=== PATIENT | male | born 1985 | race Caucasian/White ===

== ENCOUNTER 2016-05-16 23:30 | Emergency (ER) | payer SELFPAY ==
[~2016-05-16] VITALS: Ht 182.9 cm; Wt 110.0 kg
[2016-05-16 23:37] VITALS: BP 162/110; PULSE 86; RESP 14; TEMP 98.1; O2SAT 96
[2016-05-17] MEDS ORDERED: AMOXICILLIN/CLAVULANATE K 875 MG TAB PO ONE
[2016-05-17] MEDS ORDERED: KETOROLAC TROMETHAMINE 60 MG/2 ML (IM) VIAL IM ONE
--- NOTE | 2016-05-17 | PD ---
HPI Chief Complaint: ENT Complaint Time Seen by Provider: 00:00 Travel History International Travel<30 days: No Contact w/Intl Traveler<30days: No Traveled to known affect area: No History of Present Illness HPI 30-year-old male presents to the emergency department for evaluation left ear pain, severe, sharp, stabbing. Patient dates that it is radiating to his head. Denies any trauma. No drainage from the ear. No definite fever or chills. No nausea, vomiting, diarrhea. No other symptoms to report at this time. PFSH Past Medical History Depression: Yes Diminished Hearing: No Seizures: Yes (STS A CHILD. NO MORE SINCE age 8 per patient.) Social History Alcohol Use: Yes (occ) Tobacco Use: Yes (1ppd ) Substance Use: Yes Allergies-Medications (Allergen,Severity, Reaction): Coded Allergies: No Known Allergies (Verified , 05/16/16) Reported Meds & Prescriptions Reported Meds & Active Scripts Active Ibuprofen 800 Mg Tab 800 Mg PO Q8H PRN Augmentin (Amoxicillin-Clavulanate) 875-125 mg Tab 875 Mg PO BID 10 Days not for use in CrCl <30 ml/min. Review of Systems Except as stated in HPI: all other systems reviewed are Neg Physical Exam Narrative GENERAL: Well-nourished, well-developed male patient in no acute distress SKIN: Warm and dry. HEAD: Normocephalic. Atraumatic. No mastoid tenderness. EARS: Bilateral pinnae and external canals appear within normal limits. Right tympanic membranes without erythema, dullness or perforation. The left tympanic membrane is reddened, bulging, with a large purulent effusion. EYES: No scleral icterus. No injection or drainage. ENT: Mucosa pink and moist. No erythema or exudates. No uvular edema. No uvular , palatal, or tonsillar deviation. Airway patent. Nasal turbinates appear normal without nasal blood, purulent drainage or septal hematoma. NECK: Supple, trachea midline. No JVD or lymphadenopathy. CARDIOVASCULAR: Regular rate and rhythm without murmurs, gallops, or rubs. RESPIRATORY: Breath sounds equal bilaterally. No accessory muscle use. Data Data Last Documented VS Vital Signs Date Time Temp Pulse Resp B/P Pulse Ox O2 Delivery O2 Flow Rate FiO2 05/17/16 00:00 18 05/16/16 23:37 98.1 86 162/110 96 Room Air Orders Ketorolac Inj (Toradol Inj) (05/17/16 00:00) Amoxicil-Clavulanate (Augmentin) (05/17/16 00:00) MDM Medical Decision Making Medical Screen Exam Complete: Yes Emergency Medical Condition: Yes Medical Record Reviewed: Yes Differential Diagnosis Otitis media versus externa versus tympanic membrane rupture versus perforation Narrative Course 30-year-old male presents to emergency department for evaluation of left ear pain. Physical exam is consistent with an otitis media. Patient is treated for pain here. He'll be started on oral antibiotics.. He is encouraged to follow-up with primary care provider and return immediately if any acute worsening symptoms. Diagnosis Primary Impression: Otitis media Qualified Code: H65.02 - Acute serous otitis media of left ear, recurrence not specified Referrals: Primary Care Physician Patient Instructions: General Instructions, Otitis Media (ED) Additional Instructions: Avoid water submersion Do not anything into your ears Follow-up to primary care provider Return immediately to the emergency department with acute worsening of symptoms Med/Other Pt SpecificInfo: Prescription(s) given Scripts Ibuprofen 800 Mg [id number] Mg PO Q8H PRN (Pain/Inflammation) #30 TAB Ref 0 Prov:Rosalinda Cantor 05/17/16 Amoxicillin-Clavulanate (Augmentin)875-125 mg [id number] Mg PO BID 10 Days Ref 0 not for use in CrCl <30 ml/min. Prov:Rosalinda Cantor 05/17/16 Disposition: 01 DISCHARGE HOME Condition: Stable Rosalinda Cantor May 17, 2016 00:00
[2016-05-17] MEDS ORDERED: IBUP800T23 PO (00:32)
[2016-05-17] MEDS ORDERED: AUGM875T PO (00:32)
== END 2016-05-17 00:36 | disposition home or self-care (01) ==
LOC: NEPB 23:30
DX: H66.92 Otitis media, unspecified, left ear (principal); F17.210 Nicotine dependence, cigarettes, uncomplicated
CPT/HCPCS: 96372; 99283; J1885

== ENCOUNTER 2016-05-27 17:31 | Emergency (ER) | payer SELFPAY ==
[~2016-05-27] VITALS: Ht 180.3 cm; Wt 90.0 kg
[~2016-05-27 17:31] MED LIST: AUGM875T PO; IBUP800T23 PO
[2016-05-27 17:36] VITALS: BP 177/110; PULSE 81; RESP 19; TEMP 97.6; O2SAT 98
--- NOTE | 2016-05-27 18:02 | PD ---
HPI Chief Complaint: ENT Complaint Time Seen by Provider: 18:02 Travel History International Travel<30 days: No Contact w/Intl Traveler<30days: No Traveled to known affect area: No History of Present Illness HPI 30-year-old male presents to the emergency Department with complaint of left ear pain for almost 2 weeks. He was seen here 2 weeks ago and treated for a left ear infection and was given antibiotics. He says the pain has never subsided. It is worse when wind blows in his ears. Denies fever, chills, nausea, vomiting. He has taken ibuprofen with some relief of pain. Denies drainage from the ear. Denies decrease in hearing. No known allergies. No establish primary care provider. No other modifying factors or associated signs and symptoms. History Social History Alcohol Use: Yes (occ) Tobacco Use: Yes (1ppd ) Allergies-Medications (Allergen,Severity, Reaction): Coded Allergies: No Known Allergies (Verified , 05/27/16) Reported Meds & Prescriptions Reported Meds & Active Scripts Active Ibuprofen 800 Mg Tab 800 Mg PO Q8H PRN Augmentin (Amoxicillin-Clavulanate) 875-125 mg Tab 875 Mg PO BID 10 Days not for use in CrCl <30 ml/min. Review of Systems Except as stated in HPI: all other systems reviewed are Neg Physical Exam Narrative GENERAL: Well-nourished, well-developed male patient, in no acute distress; afebrile, nontoxic-appearing SKIN: Warm and dry. No rash. HEAD: Atraumatic. Normocephalic. EYES: Pupils equal and round at 3 mm with brisk reaction. No scleral icterus. No injection or drainage. PERRLA. ENT: Mucosa pink and moist. No erythema or exudates. No uvular edema. No uvular , palatal, or tonsillar deviation. Airway patent. EARS: Bilateral pinnae and external canals appear within normal limits. Bilateral tympanic membranes without erythema, dullness or perforation. Left tympanic membrane with bulging: Left ear without cerumen impaction, foreign body , signs of otitis media or otitis externa. No lymphadenopathy, erythema, edema around the ear. NECK: Trachea midline. No lymphadenopathy. CARDIOVASCULAR: Regular rate and rhythm. No murmur appreciated. RESPIRATORY: No accessory muscle use. Clear to auscultation. Breath sounds equal bilaterally. GASTROINTESTINAL: Abdomen soft, non-tender, nondistended. Hepatic and splenic margins not palpable. Bowel sounds are active 4 quadrants. MUSCULOSKELETAL: No obvious deformities. No clubbing. No cyanosis. No edema. NEUROLOGICAL: Awake and alert. Oriented 3. No obvious cranial nerve deficits. Motor grossly within normal limits. Normal speech. Moves all extremities. 5/5 strength to all extremities. PSYCHIATRIC: Appropriate mood and affect; insight and judgment normal. Data Data Last Documented VS Vital Signs Date Time Temp Pulse Resp B/P Pulse Ox O2 Delivery O2 Flow Rate FiO2 05/27/16 17:36 97.6 81 19 177/110 98 MDM Medical Screen Exam Complete: Yes Emergency Medical Condition: No Differential Diagnosis Otitis externa, otitis media, nonspecific left ear pain Narrative Course 30-year-old male with continued left ear pain after being treated for otitis media on May 16 with Augmentin. Apparently the ear pain never subsided. The left ear is without signs of otitis media, otitis externa. The patient is afebrile and nontoxic-appearing. No signs of mastoiditis: No tenderness on palpation, no erythema, no outer ear edema. Blood pressure recheck prior to discharge 142/90. Vital signs are stable and the patient is stable for outpatient follow-up and treatment. The patient has no urgent or emergent medical complaints. There is no emergent or urgent medical need at this time. I instructed the patient to follow up with their primary care provider. A medical screening exam was performed: At the time of evaluation the presenting medical condition was determined not to be of an emergent nature. The patient was given the option of receiving additional care, but declined. Patient was given options for additional community resources from which to obtain care. The Patient Has Been advised to seek medical attention for their presenting complaint. The patient has been advised to return to the ER at any time if an emergent condition develops. Primary Impression: Encounter for medical screening examination Condition: Stable Vivi Emmanuel May 27, 2016 18:02
== END 2016-05-27 18:19 | disposition left against medical advice (07) ==
LOC: NEPB 17:31
DX: H92.02 Otalgia, left ear (principal)
CPT/HCPCS: 99281